=== PATIENT | male | born 1990 | race Caucasian/White ===

== ENCOUNTER 2016-11-05 12:16 | Inpatient (IN) | payer OTHER ==
[2016-11-05 13:35] VITALS: BMI 37.0
--- NOTE | 2016-11-05 14:52 | HP ---
COWS - Scale Resting Pulse: 1= MD 81-100 Sweatin=Flushed/Facial Moisture Restless Observation: 3= Extraneous Movement Pupil Size: 1= Pupils >than Normal Bone or Joint Aches: 2= Severe Diffuse Aches Runny Nose/ Eye Tearin= Nasal Congestion GI Upset > 30mins: 1= Stomach Cramp Tremor Observation: 1= Tremor [place], Not Seen Yawning Observation: 0= None Anxiety or Irritability: 2=Irritable/Anxious Goose Flesh Skin: 3=Piloerection COWS Score: 17 Admission ROS BHS - HPI Chief Complaint: I need to stop using heroin and i need help. My won't let me go home if i am using heroin. Allergies/Adverse Reactions: Allergies Allergy/AdvReac Type Severity Reaction Status Date / Time No Known Allergies Allergy Verified 11/05/16 13:13 History of Present Illness: 26 y/o m pt with h/o heroin dep , crack and cannabis abuse seeking detox. Exam Limitations: No Limitations - Ebola screening Have you traveled outside of the country in the last 21 days: No Have you had contact with anyone from an Ebola affected area: No Have you been sick,other than usual withdrawal symptoms: No Do you have a fever: No - Review of Systems Constitutional: Loss of Appetite, Malaise, Changes in sleep EENT: reports: Nose Congestion Respiratory: reports: No Symptoms reported Cardiac: reports: No Symptoms Reported GI: reports: Nausea, Indigestion, Abdominal cramping : reports: No Symptoms Reported Musculoskeletal: reports: Joint Pain, Muscle Pain Integumentary: reports: Sweating Neuro: reports: Headache, Seizure (1 yrs ago.) Endocrine: reports: No Symptoms Reported Hematology: reports: No Symptoms Reported Psychiatric: reports: Orientated x3, Agitated, Anxious, Depressed Other Systems: Reviewed and Negative Patient History - Patient Medical History Hx Anemia: No Hx Asthma: No Hx Chronic Obstructive Pulmonary Disease (COPD): No Hx Cancer: No Hx Cardiac Disorders: No Hx Congestive Heart Failure: No Hx Hypertension: No Hx Hypercholesterolemia: No Hx Pacemaker: No HX Cerebrovascular Accident: No Hx Seizures: Yes (r/t head trauma-last episode was a year ago) Hx Dementia: No Hx Diabetes: No Hx Gastrointestinal Disorders: No Hx Liver Disease: No Hx Genitourinary Disorders: No Hx Sexually Transmitted Disorders: No Hx Renal Disease (ESRD): No Hx Thyroid Disease: No Hx Human Immunodeficiency Virus (HIV): No (neg) Hx Hepatitis C: No Hx Depression: Yes Hx Suicide Attempt: Yes (jumped in front of a train more than a year ago) Hx Bipolar Disorder: Yes Hx Schizophrenia: Yes - Patient Surgical History Past Surgical History: No Hx Neurologic Surgery: No Hx Cataract Extraction: No Hx Cardiac Surgery: No Hx Lung Surgery: No Hx Breast Surgery: No Hx Breast Biopsy: No Hx Abdominal Surgery: No Hx Appendectomy: No Hx Cholecystectomy: No Hx Genitourinary Surgery: No Hx Section: No Hx Orthopedic Surgery: No Anesthesia Reaction: No - PPD History Previous Implant?: Yes Documented Results: Negative w/proof Implanted On Prior [facility] Admission?: Yes Date: 07/15/15 Results: 0 mm PPD to be Administered?: Yes - Reproductive History Patient is a Female of Child Bearing Age (11 -55 yrs old): No - Smoking Cessation Smoking history: Current every day smoker Have you smoked in the past 12 months: Yes Aproximately how many cigarettes per day: 10 Hx Chewing Tobacco Use: No Initiated information on smoking cessation: Yes 'Breaking Loose' booklet given: 11/05/16 - Substance & Tx. History Hx Alcohol Use: No Hx Substance Use: Yes Substance Use Type: Cocaine, Heroin, Marijuana - Substances Abused Heroin Route: Inhalation Frequency: Daily Amount used: 7 bags Age of first use: 20 Date of Last Use: 11/04/16 Marijuana Route: Smoking Frequency: 1-2 times per week Amount used: $10 Age of first use: 15 Date of Last Use: 10/31/16 Crack Route: Smoking Frequency: 1-3 times last 30 days Amount used: $100./use Age of first use: 18 Date of Last Use: 10/29/16 Family Disease History - Family Disease History Family Disease History: Heart Disease: Brother (HTN), Respiratory: Mother ( asthma; depression), Sister, Other: Mother Admission Physical Exam BHS - Vital Signs Vital Signs: Vital Signs - 24 hr 11/05/16 13:24 Temperature 96.3 F L Pulse Rate 95 H Respiratory 18 Rate Blood Pressure 132/73 26 y/o m pt aox3 , restlesss, ambulating and cooperating with exam. - Physical General Appearance: Yes: Disheveled, Irritable, Sweating, Anxious HEENTM: Yes: EOMI, Hearing grossly Normal, Normocephalic, Normal Voice, ALPA, Nasal Congestion Respiratory: Yes: Chest Non-Tender, Lungs Clear, Normal Breath Sounds, No Respiratory Distress Neck: Yes: Supple Breast: Yes: Within Normal Limits Cardiology: Yes: Regular Rhythm, Regular Rate, S1, S2 Abdominal: Yes: Non Tender, Flat, Soft, Increased Bowel Sounds Genitourinary: Yes: Within Normal Limits Back: Yes: Decreased Range of Motion Musculoskeletal: Yes: Muscle Pain Extremities: Yes: Within Normal Limits Neurological: Yes: pattern carrier II-XII NML intact, Fully Oriented, Alert, Motor Strength 5/5, Normal Response, Finger to Nose Integumentary: Yes: Diaphoresis Lymphatic: Yes: Within Normal Limits - Diagnostic (1) Depression Current Visit: No Status: Acute (2) Opioid dependence with withdrawal Current Visit: Yes Status: Chronic (3) Schizoaffective disorder Current Visit: Yes Status: Chronic Qualifiers: Schizoaffective disorder type: unspecified Qualified Code(s): F25.9 - Schizoaffective disorder, unspecified (4) Cocaine dependence Current Visit: Yes Status: Chronic Qualifiers: Substance use status: uncomplicated Qualified Code(s): F14.20 - Cocaine dependence, uncomplicated (5) Marijuana dependence Current Visit: Yes Status: Chronic (6) Seizure disorder Current Visit: Yes Status: Suspected (7) Nicotine dependence Current Visit: Yes Status: Chronic Qualifiers: Nicotine product type: cigarettes Substance use status: uncomplicated Qualified Code(s): F17.210 - Nicotine dependence, cigarettes, uncomplicated (8) Obesity Current Visit: Yes Status: Chronic Qualifiers: Obesity type: unspecified obesity type Cleared for Admission [facility] - Detox or Rehab [facility] Level of Care: Medically Managed Detox Regimen/Protocol: Methadone [facility] Breath Alcohol Content Breath Alcohol Content: 0 Urine Drug Screen - Results Drug Screen Negative: No Urine Drug Screen Results: THC-Marijuana, MARK-Cocaine, OPI-Opiates, MDMA-Ecstasy , OXY-Oxycodone
[2016-11-05] MEDS ORDERED: NICOTINE POLACRILEX 4 MG GUM BUC PRN (15:05)
[2016-11-05] MEDS ORDERED: diphenhydrAMINE HCL 50 MG CAPSULE PO PRN (15:05)
[2016-11-05] MEDS ORDERED: LOPERAMIDE HCL 2 MG CAPSULE PO PRN (15:05)
[2016-11-05] MEDS ORDERED: P-EPHED 60MG/TRIPROLIDI 2.5MG TABLET PO PRN (15:05)
[2016-11-05] MEDS ORDERED: hydrOXYzine PAMOATE 25 MG CAPSULE (FP) PO PRN (15:05)
[2016-11-05] MEDS ORDERED: guaiFENesin/D-METHORPHAN HB 10 ML UNIT-DOSE CUPS PO PRN (15:05)
[2016-11-05] MEDS ORDERED: MAG HYDROX/AL HYDROX/SIMETH 30 ML UNIT-DOSE CUP PO PRN (15:05)
[2016-11-05] MEDS ORDERED: IBUPROFEN 400 MG TABLET (FP) PO PRN (15:05)
[2016-11-05] MEDS ORDERED: ACETAMINOPHEN 325 MG TABLET (FP) PO PRN (15:05)
[2016-11-05] MEDS ORDERED: MAGNESIUM HYDROX 2400MG/30ML ORAL SUSPENSION 30 ML CUP PO PRN (15:05)
[2016-11-05] MEDS ORDERED: MENTHOL/PHENOL 1 EACH UD MM PRN (15:05)
[2016-11-05] MEDS ORDERED: MAGNESIUM CITRATE 300 ML BOTTLE PO PRN (15:05)
[2016-11-05] MEDS ORDERED: METHADONE HCL 10 MG TABLET (FOR DETOX USE ONLY) PO ONE ×2 (15:21→23:00)
--- NOTE | 2016-11-05 16:15 | CONSULT ---
[id number] [facility] Identifying data: This is 26 years old male with history of Schizoaffective disoprder, intoxicated with: Opioids, Cocaine, Cannabis, Nicotine Substance Abuse History: - Smoking Cessation. Smoking history: Current every day smoker. Have you smoked in the past 12 months: Yes. Aproximately how many cigarettes per day: 10. Hx Chewing Tobacco Use: No. Initiated information on smoking cessation: Yes. 'Breaking Loose' booklet given: 11/05/16. - Substance & Tx. History. Hx Alcohol Use: No. Hx Substance Use: Yes. Substance Use Type : Cocaine, Heroin, Marijuana. - Substances Abused. Heroin. Route: Inhalation. Frequency: Daily. Amount used: 7 bags. Age of first use: 20. Date of Last Use: 11/04/16. Marijuana. Route: Smoking. Frequency: 1-2 times per week. Amount used: $10. Age of first use: 15. Date of Last Use: . Crack. Route: Smoking. Frequency: 1-3 times last 30 days. Amount used: $100./use. Age of first use: 18. Date of Last Use: 10/29/16 Medical History: Obesity, Seizure history, Syncope history, Psychiatric History: Patient reports to carry Schizoaffective disorder with unclear psychiatric hospitalization history, hiswtory of sucidal thinking and attempts, reports no suicidal ideations at present time. Patient reports taking currently: Seroquel 100mg po bid. Gabapentin 600mg po tid Physical/Sexual Abuse/Trauma History: Denies Additional Comment: Seroquel 100mg po bid. Gabapentin 600mg po tid Mental Status Exam - Mental Status Exam Alert and Oriented to: Person Cognitive Function: Fair Patient Appearance: Unkempt Mood: Angry, Anxious Affect: Mood Congruent Patient Behavior: Sedated, Cooperative Speech Pattern: Delayed Voice Loudness: Mildly Loud Thought Process: Circumstantial Thought Disorder: Being Controlled Hallucinations: Denies Suicidal Ideation: Denies Homicidal Ideation: Denies Insight/Judgement: Fair Sleep: Difficulty falling asleep Appetite: Weight gain Muscle strength/Tone: Normal Gait/Station: Normal Additional Comments: Seroquel 100mg po bid. Gabapentin 600mg po tid Psychiatric Findings - Problem List ([place] 1, 2,3) (1) Cocaine dependence Status: Chronic Qualifiers: Substance use status: uncomplicated Qualified Code(s): F14.20 - Cocaine dependence, uncomplicated (2) Marijuana dependence Status: Chronic (3) Nicotine dependence Status: Chronic Qualifiers: Nicotine product type: cigarettes Substance use status: uncomplicated Qualified Code(s): F17.210 - Nicotine dependence, cigarettes, uncomplicated (4) Opioid dependence with withdrawal Status: Acute (5) Schizoaffective disorder Status: Chronic Qualifiers: Schizoaffective disorder type: unspecified Qualified Code(s): F25.9 - Schizoaffective disorder, unspecified (6) Heroin dependence Status: Acute (7) Oxycontin use disorder, mild, abuse Status: Acute (8) Substance induced mood disorder Status: Chronic - Initial Treatment Plan Initial Treatment Plan: Seroquel 100mg po bid. Gabapentin 600mg po tid
[2016-11-05] MEDS: diazePAM 5 MG TABLET PO PRN ×2 (16:46→22:22)
[2016-11-05] MEDS ORDERED: GABAPENTIN 300 MG CAPSULE (FP) PO SCH (22:00)
[2016-11-05] MEDS: THIAMINE HCL 100 MG TABLET (FP) PO SCH (22:20)
[2016-11-05] MEDS: levETIRAcetam 250 MG TABLET (FP) PO SCH (22:20)
[2016-11-05] MEDS: GABAPENTIN 300 MG CAPSULE (FP) PO SCH (22:20)
[2016-11-05] MEDS: QUEtiapine FUMARATE 100 MG TABLET (FP) PO SCH (22:20)
[2016-11-06] MEDS: diazePAM 5 MG TABLET PO PRN ×3 (06:08→22:29)
[2016-11-06] MEDS: GABAPENTIN 300 MG CAPSULE (FP) PO SCH ×3 (06:08→22:29)
[2016-11-06] MEDS ORDERED: METHADONE HCL 10 MG TABLET (FOR DETOX USE ONLY) PO ONE (10:00)
[2016-11-06 10:04] LABS: MCHC 33.7 g/dl (32.0-35.9); MEAN PLT VOLUME 8.9 fl (7.5-11.1); PLATELET COUNT 197 K/MM3 (134-434); RDW 13.3 % (11.9-15.9)
[2016-11-06] MEDS: levETIRAcetam 250 MG TABLET (FP) PO SCH ×2 (10:21→22:29)
[2016-11-06] MEDS: PRENATAL VITAMINS W/ FOLIC ACID TABLET (FP) PO SCH (10:21)
[2016-11-06] MEDS: NICOTINE 21 MG/24 HOURS TOPICAL PATCH TD SCH (10:21)
[2016-11-06] MEDS: QUEtiapine FUMARATE 100 MG TABLET (FP) PO SCH ×2 (10:21→22:29)
--- NOTE | 2016-11-06 10:48 | PN ---
S COWS - Scale Resting Pulse: 1= [place] 81-100 Sweatin= Chills/Flushing Restless Observation: 3= Extraneous Movement Pupil Size: 2= Moderately Dilated Bone or Joint Aches: 4=Acute Joint/Muscle Pain Runny Nose/ Eye Tearin= Nasal Congestion GI Upset > 30mins: 1= Stomach Cramp Tremor Observation of Outstretched Hands: 1= Tremor [place], Not Seen Yawning Observation: 1= 1-2x During Session Anxiety or Irritability: 2=Irritable/Anxious Goose Flesh Skin: 0=Smooth Skin COWS Score: 17 S Progress Note (SOAP) Subjective: ANXIETY, SWEATS, FATIGUE,INTERMITTENT SLEEP. Objective: 11/06/16 10:55 Vital Signs Temperature 97.1 F L 11/06/16 09:41 Pulse Rate 81 11/06/16 09:41 Respiratory Rate 20 11/06/16 09:41 Blood Pressure 126/82 11/06/16 09:41 O2 Sat by Pulse Oximetry (%) Laboratory Last Values WBC 5.0 K/mm3 (4.0-10.0) 11/06/16 07:30 RBC 4.82 M/mm3 (4.00-5.60) 11/06/16 07:30 Hgb 14.5 GM/dL (11.7-16.9) 11/06/16 07:30 Hct 42.9 % (35.4-49) 11/06/16 07:30 MCV 89.0 fl (80-96) 11/06/16 07:30 MCHC 33.7 g/dl (32.0-35.9) 11/06/16 07:30 RDW 13.3 % (11.9-15.9) 11/06/16 07:30 Plt Count 197 K/MM3 (134-434) 11/06/16 07:30 MPV 8.9 fl (7.5-11.1) 11/06/16 07:30 Assessment: 11/06/16 10:55 WITHDRAWAL SX Plan: CONTINUE DETOX
[2016-11-06 14:15] LABS: URINE APPEARANCE CLEAR; URINE BILIRUBIN NEGATIVE (NEGATIVE); URINE BLOOD NEGATIVE (NEGATIVE); URINE COLOR STRAW; URINE GLUCOSE (UA) NEGATIVE (NEGATIVE); URINE KETONE NEGATIVE (NEGATIVE); URINE LEUK ESTERASE NEGATIVE (NEGATIVE); URINE NITRITE NEGATIVE (NEGATIVE); URINE PROTEIN NEGATIVE (NEGATIVE); URINE UROBILINOGEN NEGATIVE E.U./dl (0.2-1.0)
--- NOTE | 2016-11-06 15:18 | EKG ---
Test Reason : Blood Pressure : / mmHG Vent. Rate : 069 BPM Atrial Rate : 069 BPM P-R Int : 136 ms QRS Dur : 098 ms QT Int : 386 ms P-R-T Axes : 126 132 134 degrees QTc Int : 413 ms SUSPECT ARM LEAD REVERSAL, INTERPRETATION ASSUMES NO REVERSAL UNUSUAL P AXIS, POSSIBLE ECTOPIC ATRIAL RHYTHM RIGHT AXIS DEVIATION NONSPECIFIC ST ABNORMALITY ABNORMAL ECG WHEN COMPARED WITH ECG OF 05-NOV-2016 16:52, ECTOPIC ATRIAL RHYTHM HAS REPLACED SINUS RHYTHM Confirmed by ALICIA HUNG MD ([id number]) on 11/06/2016 3:18:01 PM Referred By: Confirmed By:ALICIA HUNG MD
--- NOTE | 2016-11-06 15:21 | EKG ---
Test Reason : Blood Pressure : / mmHG Vent. Rate : 089 BPM Atrial Rate : 089 BPM P-R Int : 140 ms QRS Dur : 092 ms QT Int : 358 ms P-R-T Axes : 043 056 044 degrees QTc Int : 435 ms NORMAL SINUS RHYTHM INCOMPLETE RBBB ABNORMAL ECG NO PREVIOUS ECGS AVAILABLE Confirmed by ALICIA HUNG MD ([id number]) on 11/06/2016 3:21:35 PM Referred By: Confirmed By:ALICIA HUNG MD
[2016-11-06] MEDS: THIAMINE HCL 100 MG TABLET (FP) PO SCH (22:29)
[2016-11-07] MEDS: GABAPENTIN 300 MG CAPSULE (FP) PO SCH ×3 (06:16→22:29)
[2016-11-07] MEDS ORDERED: METHADONE HCL 5 MG TABLET (FOR DETOX USE ONLY) PO ONE (10:00)
[2016-11-07] MEDS: PRENATAL VITAMINS W/ FOLIC ACID TABLET (FP) PO SCH (10:32)
[2016-11-07] MEDS: QUEtiapine FUMARATE 100 MG TABLET (FP) PO SCH (10:32)
[2016-11-07] MEDS: levETIRAcetam 250 MG TABLET (FP) PO SCH ×2 (10:32→22:29)
[2016-11-07] MEDS: NICOTINE 21 MG/24 HOURS TOPICAL PATCH TD SCH (10:33)
[2016-11-07] MEDS: diazePAM 5 MG TABLET PO PRN ×3 (10:34→22:28)
--- NOTE | 2016-11-07 10:43 | PN ---
BHS COWS - Scale Resting Pulse: 0= VT 80 or Below Sweatin=Flushed/Facial Moisture Restless Observation: 1= Difficult to Sit Still Pupil Size: 0= Normal to Room Light Bone or Joint Aches: 1= Mild Discomfort Runny Nose/ Eye Tearin= Runny Nose/Eyes GI Upset > 30mins: 1= Stomach Cramp Tremor Observation of Outstretched Hands: 2= Slight Tremor Visible Yawning Observation: 1= 1-2x During Session Anxiety or Irritability: 2=Irritable/Anxious Goose Flesh Skin: 0=Smooth Skin COWS Score: 12 BHS Progress Note (SOAP) Subjective: Anxiety,tremors,sweating,interrupted sleep. Objective: 11/07/16 10:42 Vital Signs - 8 hr 11/07/16 11/07/16 03:30 06:46 Temperature 96.7 F L Pulse Rate 70 Respiratory 18 18 Rate Blood Pressure 130/79 Laboratory Tests 11/05/16 11/06/16 11/06/16 09:00 07:30 07:30 WBC 5.0 RBC 4.82 Hgb 14.5 Hct 42.9 MCV 89.0 MCHC 33.7 RDW 13.3 Plt Count 197 MPV 8.9 Urine Color Urine Appearance Urine pH Ur Specific Gordon Urine Protein Urine Glucose (UA) Urine Ketones Urine Blood Urine Nitrite Urine Bilirubin Urine Urobilinogen Ur Leukocyte Esterase RPR Titer Nonreactive Hepatitis C Antibody <0.1 11/06/16 12:00 WBC RBC Hgb Hct MCV MCHC RDW Plt Count MPV Urine Color Straw Urine Appearance Clear Urine pH 8.0 Ur Specific Gordon 1.009 Urine Protein Negative Urine Glucose (UA) Negative Urine Ketones Negative Urine Blood Negative Urine Nitrite Negative Urine Bilirubin Negative Urine Urobilinogen Negative Ur Leukocyte Esterase Negative RPR Titer Hepatitis C Antibody labs noted Assessment: 11/07/16 10:42 Withdrawal sx. Plan: Continue detox
--- NOTE | 2016-11-07 11:18 | PN ---
JEANE Progress Note Note: Psychiatry Attending's note : Asked by nurse to address seroquel dose. Patient complains of sedation and daytime sleepiness. Mr Roberts no longer wants seroquel during the day. He requests reduction of dosage to 100 mg at bedtime. Intervention : seroquel 1000 mg po bid is discontinued. seroquel 100 mg po hs. Patient agrees.Side effects/benefits discussed. Nursing staff is made aware.
[2016-11-07 14:44] LABS: ALBUMIN 3.5 g/dl (3.4-5.0); ALK PHOS 100 U/L (45-117); ANION GAP 14 (8-16); BILIRUBIN,TOTAL 0.2 mg/dL (0.2-1.0); CALCIUM 8.7 mg/dL (8.5-10.1); CO2 24 mmol/L (21-32); CREATININE 0.8 mg/dL (0.7-1.3); GLUCOSE,RANDOM 109 mg/dL (74-106); SGOT/AST 10 U/L (15-37); SGPT/ALT 50 U/L (12-78); TOT PROT 5.9 g/dl (6.4-8.2)
[2016-11-07] MEDS ORDERED: QUEtiapine FUMARATE 100 MG TABLET (FP) PO SCH (22:00)
[2016-11-07] MEDS: THIAMINE HCL 100 MG TABLET (FP) PO SCH (22:28)
[2016-11-08] MEDS: GABAPENTIN 300 MG CAPSULE (FP) PO SCH (05:59)
[2016-11-08] MEDS: diazePAM 5 MG TABLET PO PRN (06:00)
[2016-11-08 06:30] VITALS: BP 129/80; PULSE 78; TEMP 97.7
[2016-11-08] MEDS ORDERED: METHADONE HCL 5 MG TABLET (FOR DETOX USE ONLY) PO ONE (10:00)
--- NOTE | 2016-11-08 13:40 | DS ---
[facility] Detox Discharge Summary Admission Date: 11/05/16 Discharge Date: 11/08/16 - History Present History: Opioid Dependence Pertinent Past History: Denies - Physical Exam Results Vital Signs: Vital Signs Temperature 97.7 F 11/08/16 06:29 Pulse Rate 78 11/08/16 06:29 Respiratory Rate 18 11/08/16 06:29 Blood Pressure 129/80 11/08/16 06:29 O2 Sat by Pulse Oximetry (%) Pertinent Admission Physical Exam Findings: Withdrawal symptoms Laboratory Tests 11/05/16 11/06/16 11/06/16 09:00 07:30 07:30 WBC 5.0 RBC 4.82 Hgb 14.5 Hct 42.9 MCV 89.0 MCHC 33.7 RDW 13.3 Plt Count 197 MPV 8.9 Sodium 146 H Potassium 3.6 Chloride 108 H Carbon Dioxide 24 Anion Gap 14 BUN 8 D Creatinine 0.8 Creat Clearance w eGFR > 60 Random Glucose 109 H Calcium 8.7 Total Bilirubin 0.2 D AST 10 L ALT 50 D Alkaline Phosphatase 100 Total Protein 5.9 L Albumin 3.5 Urine Color Urine Appearance Urine pH Ur Specific [place] Urine Protein Urine Glucose (UA) Urine Ketones Urine Blood Urine Nitrite Urine Bilirubin Urine Urobilinogen Ur Leukocyte Esterase RPR Titer Hepatitis C Antibody <0.1 11/06/16 11/06/16 07:30 12:00 WBC RBC Hgb Hct MCV MCHC RDW Plt Count MPV Sodium Potassium Chloride Carbon Dioxide Anion Gap BUN Creatinine Creat Clearance w eGFR Random Glucose Calcium Total Bilirubin AST ALT Alkaline Phosphatase Total Protein Albumin Urine Color Straw Urine Appearance Clear Urine pH 8.0 Ur Specific [place] 1.009 Urine Protein Negative Urine Glucose (UA) Negative Urine Ketones Negative Urine Blood Negative Urine Nitrite Negative Urine Bilirubin Negative Urine Urobilinogen Negative Ur Leukocyte Esterase Negative RPR Titer Nonreactive Hepatitis C Antibody Labs noted - Medication Discharge Medications: Ambulatory Orders Gabapentin 600 mg PO TID 07/13/15 Levetiracetam [Keppra -] 250 mg PO BID 07/13/15 Quetiapine Fumarate [Seroquel -] 100 mg PO BID 30 Days 07/15/15 Gabapentin 600 mg PO TID #90 tablet 11/05/16 Quetiapine Fumarate [Seroquel] 100 mg PO BID #60 tablet 11/05/16 - Diagnosis (1) Opioid dependence with withdrawal Current Visit: Yes Status: Acute (2) Schizoaffective disorder Current Visit: Yes Status: Chronic Qualifiers: Schizoaffective disorder type: unspecified Qualified Code(s): F25.9 - Schizoaffective disorder, unspecified (3) Seizure disorder Current Visit: Yes Status: Chronic (4) Depression Current Visit: Yes Status: Chronic - AMA Did Patient Leave Against Medical Advice: No (Administratively discharged for fighting with peer on unit)
[2016-11-09] MEDS ORDERED: METHADONE HCL 10 MG TABLET (FOR DETOX USE ONLY) PO ONE (10:00)
[2016-11-10] MEDS ORDERED: METHADONE HCL 5 MG TABLET (FOR DETOX USE ONLY) PO ONE (06:00)
== END 2016-11-08 08:54 | disposition home or self-care (01) | DRG 773 ==
LOC: YASAS 12:16 → Y3N 15:19
PROVIDERS: ADMIT Internal Medicine; ATTEND Internal Medicine
PROC: HZ2ZZZZ Detoxification Services for Substance Abuse Treatment (ICD-10-PCS; principal; 2016-11-08)
DX: F11.23 Opioid dependence with withdrawal (principal); F14.20 Cocaine dependence, uncomplicated; F12.20 Cannabis dependence, uncomplicated; F19.24 Other psychoactive substance dependence with psychoactive substance-induced mood disorder; F25.9 Schizoaffective disorder, unspecified; F32.9 Major depressive disorder, single episode, unspecified; G40.909 Epilepsy, unspecified, not intractable, without status epilepticus; Z91.19 Patient's noncompliance with other medical treatment and regimen
CPT/HCPCS: 36415; 80053; 81003; 85027; 86593; 93005; 93010